=== PATIENT | female | born 1970 | race African-American/Black ===

== ENCOUNTER 2016-04-25 07:14 | Emergency (ER) | payer MEDICAID, OTHER ==
[~2016-04-25] VITALS: Ht 157.5 cm; Wt 54.9 kg
[~2016-04-25 07:14] MED LIST: ALBUTEROL SULF8.5 GM INH; IBUPROFEN600 MG ORAL; LEVAQUIN500 MG ORAL; NKM; PROMETHAZINE-C118 M1 ORAL
[2016-04-25] MEDS ORDERED: ACETAMINOPHEN-1 EAC1 ORAL (08:12)
[2016-04-25] MEDS ORDERED: Tylenol #3 tab (300mg/30mg) ORAL ONE (08:15)
[2016-04-25 08:52] VITALS: BP 102/70
--- NOTE | 2016-04-25 09:03 | Emergency Room Report ---
History of Present Illness General Chief Complaint: Chest Pain Source: Patient Present Illness HPI 46 YO F presents with ~10 days cough, chest tightness, left ear pain, sore throat. Saw PMD 8 days ago, was tx for bronchitis with prednisone, claritin, cough syrup and albuterol with improvement. Still c/o chest tightness, worse with cough. Denies smoking, COPD, asthma history. Denies sick contacts. Allergies: Coded Allergies: AZITHROMYCIN (Unverified Allergy, Unknown, 12/16/13) SUMATRIPTAN (Unverified Allergy, Unknown, 12/16/13) Patient History Past Medical History: none Past Surgical History: none Pertinent Family History: none Social History: Denies: alcohol use, drug use, smoking Last Menstrual Period: 04/18/16 Now: No Immunizations: UTD Reviewed Nursing Documentation: PMH: Agreed, PSxH: Agreed Nursing Documentation-PMH Hx Cardiac Problems: No - MIGRANES Review of Systems All Other Systems: negative except mentioned in HPI Physical Exam Vital Signs Date Time Temp Pulse Resp B/P Pulse Ox O2 Delivery O2 Flow Rate FiO2 04/25/16 07:18 98.1 97 18 102/70 100 Room Air Sp02 EP Interpretation: reviewed, normal General Appearance: normal inspection, well appearing, no apparent distress, alert Head: normocephalic, atraumatic Eyes: bilateral eye EOMI, bilateral eye PERRL ENT: normal ENT inspection, hearing grossly normal, normal pharynx, no angioedema, normal voice, TMs + canals normal, uvula midline Neck: normal inspection, full range of motion, supple, no bony tend Respiratory: normal inspection, lungs clear, normal breath sounds, no respiratory distress, no retraction, no wheezing Cardiovascular #1: regular rate, rhythm, no edema Gastrointestinal: normal inspection, normal bowel sounds, non tender, soft, no guarding, no hernia Genitourinary: no CVA tenderness Musculoskeletal: normal inspection, back normal, normal range of motion, Rossana' s Sign negative Neurologic: normal inspection, alert, oriented x3, responsive, patent engineer III-XII nml as tested, speech normal Psychiatric: normal inspection, judgement/insight normal, mood/affect normal Skin: normal inspection, normal color, no rash Medical Decision Making Diagnostic Impression: Primary Impression: Cough ER Course 46 YO F with cough for ~10 days. Afebrile. VSS. On tx for bronchitis Requesting CXR to r/o PNA on ED review, no acute PNA No source of bacterial infection in oropharynx, ears, throat Improved symptoms here with T#3, DCed with same F/up PMD Chest X-Ray Diagnostic Results EP Interpretation: Yes Findings: no consolidation, no effusion, no pneumothorax, no acute cardiopulmonary disease Number of Views: 1 Last Vital Signs Date Time Temp Pulse Resp B/P Pulse Ox O2 Delivery O2 Flow Rate FiO2 04/25/16 08:52 98.1 12 102/70 100 Room Air 04/25/16 08:51 97 Disposition: HOME, SELF-CARE Condition: Improved Scripts Acetaminophen With Codeine (T#3) (TYLENOL #3 TAB*) Y Tab 2 TAB ORAL Q8H Y for For Pain, #30 TAB Prov: JILLIAN MICHAEL M.D. 04/25/16 Referrals: [facility] [place] (PCP) Patient Instructions: Acute Bronchitis, [id number] Additional Instructions: - Try tylenol with codeine as needed for chest pain, neck pain - Follow up with your primary doctor in 2-3 days JILLIAN MICHAEL M.D. Apr 25, 2016 09:03
[2016-04-25 09:07] VITALS: BP 108/80
--- NOTE | 2016-04-28 15:51 | Diagnostic Imaging Report ---
Indication: Chest pain Technique: Single portable AP view of the chest. Findings: Comparison: 08/18/2008 Bilateral breast implants again noted. The bones and extra pulmonary soft tissues, cardiomediastinal silhouette, pulmonary vasculature and parenchyma, and pleural surfaces are otherwise unremarkable. IMPRESSION: Essentially negative portable AP chest, unchanged.
== END 2016-04-25 09:12 | disposition home or self-care (01) ==
LOC: EMR 07:44
DX: R05 Cough (principal); R07.89 Other chest pain; H92.02 Otalgia, left ear; Z88.1 Allergy status to other antibiotic agents
CPT/HCPCS: 71010; 99283

== ENCOUNTER 2017-03-01 17:15 | Emergency (ER) | payer MEDICAID, OTHER ==
[~2017-03-01] VITALS: Ht 157.5 cm; Wt 53.1 kg
[~2017-03-01 17:15] MED LIST changes: +ACETAMINOPHEN-1 EAC1 ORAL
[2017-03-01] MEDS ORDERED: PROAIR HFA8.5 GM INH (17:55)
[2017-03-01] MEDS ORDERED: PROMETHAZINE-C118 M1 ORAL (17:55)
[2017-03-01] MEDS ORDERED: IBUPROFEN600 MG ORAL (17:55)
[2017-03-01] MEDS ORDERED: PREDNISONE20 MG ORAL (17:55)
[2017-03-01 18:00] VITALS: BP 110/81
--- NOTE | 2017-03-01 20:32 | Emergency Room Report ---
History of Present Illness General Chief Complaint: Upper Respiratory Illness Source: Patient Present Illness [facility] The patient is a 46-year-old female presenting for sore throat, cough, subjective fevers, chills for the past week.She denies any known sick contacts or recent travel. She does have a 7/10 dull ache in the chest which occurs with coughing only. Pain does not radiate. She does admit to mild shortness of breath and is worse at night. She denies other symptoms including nausea, vomiting, hemoptysis, neck pain or stiffness, rash Allergies: Coded Allergies: AZITHROMYCIN (Unverified Allergy, Unknown, 12/16/13) SUMATRIPTAN (Unverified Allergy, Unknown, 12/16/13) Patient History Past Medical History: see triage record Pertinent Family History: none Last Menstrual Period: One week ago Now: No Reviewed Nursing Documentation: PMH: Agreed, PSxH: Agreed Review of Systems All Other Systems: negative except mentioned in HPI Physical Exam Vital Signs Date Time Temp Pulse Resp B/P (MAP) Pulse Ox O2 Delivery O2 Flow Rate FiO2 03/01/17 17:18 97.9 86 46 119/77 100 Room Air Sp02 EP Interpretation: reviewed, normal General Appearance: no apparent distress, alert, GCS 15, non-toxic Head: normocephalic, atraumatic Eyes: bilateral eye normal inspection, bilateral eye PERRL ENT: hearing grossly normal, normal pharynx, no angioedema, normal voice Neck: full range of motion, supple/symm/no masses Respiratory: normal inspection, no accessory muscle use, decreased breath sounds, wheezing - bilat Cardiovascular #1: regular rate, rhythm, no edema Gastrointestinal: normal bowel sounds, non tender, soft, non-distended, no guarding, no rebound Musculoskeletal: back normal, gait/station normal, normal range of motion, non- tender Neurologic: alert, oriented x3, responsive, motor strength/tone normal, sensory intact, speech normal Psychiatric: judgement/insight normal, memory normal, mood/affect normal, no suicidal/homicidal ideation Skin: normal color, no rash, warm/dry, well hydrated Lymphatic: no adenopathy Medical Decision Making PA Attestation Dr. Milton is my supervising physician. Patient management was discussed with my supervising physician Diagnostic Impression: Primary Impression: Bronchitis ER Course The patient is a 46-year-old female presenting for sore throat, cough, subjective fevers, chills for the past week Differential diagnosis include but not limited to pharyngitis, sinusitis, AOM, bronchitis, PNA PE: afebrile. No tachypnea. No apparent distress. No TTP over maxillary or frontal sinuses. Lungs: diffuse wheezing. No accessory muscle use. No resp distress Heart: RRR, no abnormal heart sounds Ears: external auditory canal clear. Non erythematous. Bilat TM intact. Cone of light present bilat. No bulging of TM. No serous fluid seen. no nasal D/C Nor cervical lymphad No tonsillar exudate. Uvula midline.Oropharynx non erythematous CXR unremarkable The patient will be discharged home with a prescription for albuterol, prednisone, and cough medication. ER precautions given Chest X-Ray Diagnostic Results Chest X-Ray Diagnostic Results : Chest X-Ray Ordered: Yes # of Views/Limited/Complete: 1 View Indication: Shortness of Breath EP Interpretation: Yes PA Xray: Interpretation reviewed, by supervising MD, and agrees with findings. Interpretation: no consolidation, no effusion, no pneumothorax, no acute cardiopulmonary disease Impression: No acute disease Electronically Signed by: Pasha Carlson PA-C Last Vital Signs Date Time Temp Pulse Resp B/P (MAP) Pulse Ox O2 Delivery O2 Flow Rate FiO2 03/01/17 18:00 98.2 76 25 110/81 100 Room Air Status: improved Disposition: HOME, SELF-CARE Condition: Improved Scripts Prednisone* (PREDNISONE*) 20 Mg Tablet 40 MG ORAL DAILY, #8 TAB Prov: PASHA CARLSON P.A. 03/01/17 Albuterol Sulfate* (PROAIR HFA*) 8.5 Gm Hfa.aer.ad 2 PUFFS INH Q6H, #8.5 GM 0 Refills Prov: TERZIANCATALINOY P.A. 03/01/17 Ibuprofen* (MOTRIN*) 600 Mg Tablet 600 MG ORAL Q8H Y for For Pain, #30 TAB 0 Refills Prov: TERZIANPASHA P.A. 03/01/17 Codeine/Promethazine Hcl* (PROMETHAZINE-CODEINE SYRUP*) 118 Ml Syrup 5 ML ORAL Q6H Y for For Cough, #118 ML 0 Refills Prov: TERZIAN,PASHA Oden 03/01/17 Referrals: [facility] [place] (PCP) Patient Instructions: Acute Bronchitis Additional Instructions: I discussed my findings with the patient. All questions and concerns have been answered. Treatment and medication compliance have been addressed. I advised the patient that they need to follow up with PMD in 3-5 days. Return to ED if pain remains or worsens, cough worsens or remains, you notice blood in your sputum, you notice wheezing, you experience a fever, or if needed for any reason. Patient verbalized understanding of discharge instructions. PASHA CARLSON Mar 01, 2017 20:32
--- NOTE | 2017-03-02 13:51 | Diagnostic Imaging Report ---
Indication: Dyspnea Comparison: 04/25/16 A single view chest radiograph was obtained. Findings: The left hemidiaphragm is slightly hazy. This could be due to underlying infiltrate or atelectasis. Please correlate clinically. Followup suggested. Heart size is normal. Bones are unremarkable. Impression: Mild infiltrate versus atelectasis at the left lung base
== END 2017-03-01 18:00 | disposition home or self-care (01) ==
LOC: EMR 17:50
DX: J40 Bronchitis, not specified as acute or chronic (principal); Z88.8 Allergy status to other drugs, medicaments and biological substances; Z88.1 Allergy status to other antibiotic agents
CPT/HCPCS: 71010; 99284

== ENCOUNTER 2019-04-12 08:47 | Emergency (ER) | payer MEDICAID, OTHER ==
[~2019-04-12] VITALS: Ht 157.5 cm; Wt 52.6 kg
[~2019-04-12 08:47] MED LIST changes: +PREDNISONE20 MG ORAL; +PROAIR HFA8.5 GM INH
--- NOTE | 2019-04-12 09:02 | NUR ---
ED Nurse Note: patient walked into ED from home c/o left ankle pain 7/10 and some minor swelling which she noticed when she woke up this morning. patient reports she twisted her left ankle today around 0100 wearing high heel boot. patient is alert awake x 4 ambulatory with minor limping, states that she has pain when she bears weight.
[2019-04-12] MEDS ORDERED: Acetaminophen 500mg (ES) tab ORAL ONE (09:30)
[2019-04-12] MEDS ORDERED: TYLENOL325 MG ORAL (10:17)
--- NOTE | 2019-04-12 10:17 | Emergency Room Report ---
History of Present Illness General Chief Complaint: Lower Extremity Injury Source: Patient Present Illness HPI 49-year-old female no past medical history no surgical history presents with left ankle pain, on the lateral side worsened with movement alleviated with rest , patient tripped, and stumbled at 1 AM yesterday, severity is moderate, intermittent she endorses a left achy pain. Allergies: Coded Allergies: AZITHROMYCIN (Unverified Allergy, Unknown, 12/16/13) SUMATRIPTAN (Unverified Allergy, Unknown, 12/16/13) Patient History Past Medical History: see triage record Last Menstrual Period: Apr 02, 2019 Now: No Reviewed Nursing Documentation: PMH: Agreed; PSxH: Agreed Nursing Documentation-PMH Past Medical History: No History, Except For Review of Systems All Other Systems: negative except mentioned in HPI Physical Exam Vital Signs Date Time Temp Pulse Resp B/P (MAP) Pulse Ox O2 Delivery O2 Flow Rate FiO2 04/12/19 08:57 98.1 72 18 107/72 (84) 99 Room Air General Appearance: well appearing, no apparent distress Head: normocephalic, atraumatic ENT: hearing grossly normal, normal voice Neck: full range of motion, supple Respiratory: no respiratory distress, speaking full sentences Musculoskeletal: other - Left ankle tenderness to palpation left lateral malleolus, 2+ PT DP, fires EHL, 5-5 plantar dorsiflexion of the foot, minimal swelling noted Neurologic: alert, normal gait Psychiatric: mood/affect normal Skin: no rash Procedures Splinting Splinting : Consent: Verbal Location: Left ankle Pre-Made Type: aircast Pre-Proc Neuro Vasc Exam: normal Post-Proc Neuro Vasc Exam: normal Patient Tolerated: Well Complications: None Medical Decision Making Diagnostic Impression: Primary Impression: Ankle sprain Qualified Codes: S93.402A - Sprain of unspecified ligament of left ankle, initial encounter ER Course 49-year-old female presents with left ankle pain differential diagnosis includes fracture, dislocation, sprain X-ray negative, patient given a splint and crutches disposition home with return precautions follow-up with Ortho Other X-Ray Diagnostic Results Other X-Ray Diagnostic Results : X-Ray ordered: Left ankle # of Views/Limited Vs Complete: 3 View Indication: Pain EP Interpretation: Yes Interpretation: no dislocation, no soft tissue swelling, no fractures, nonspecific bowel gas Impression: No acute disease Electronically Signed by: Dane Black MD Last Vital Signs Date Time Temp Pulse Resp B/P (MAP) Pulse Ox O2 Delivery O2 Flow Rate FiO2 04/12/19 08:57 98.1 72 18 107/72 (84) 99 Room Air Disposition: HOME, SELF-CARE Condition: Stable Scripts Acetaminophen (Tylenol) 325 Mg Tablet 650 MG ORAL Q6H PRN for Prn Pain/Headache/Temp > 101, #30 TAB 0 Refills Prov: Dane Black MD 04/12/19 Referrals: NON PHYSICIAN (PCP) [facility] Patient Instructions: Ankle Sprain Additional Instructions: The patient was provided with discharge instructions, notified to follow-up with a primary care doctor and or specialist in the next 24-48 hours, and to return to the ED if they have worsening of their symptoms. Please note that this report is being documented using DRAGON technology. This can lead to erroneous entry secondary to incorrect interpretation by the dictating instrument. Dane Black MD Apr 12, 2019 10:17
[2019-04-12 10:22] VITALS: BP 107/72
--- NOTE | 2019-04-12 10:22 | NUR ---
ER DISCHARGE NOTE: Patient is cleared to be discharged per ERMD DR MADSEN, pt is aox4, on room air, with stable vital signs. pt was given dc and prescription instructions, pt was able to verbalize understanding, pt id band removed without complications. pt is able to ambulate with steady gait. pt took all belongings.
--- NOTE | 2019-04-12 10:25 | Diagnostic Imaging Report ---
EXAM: XR Left Ankle Complete, 3 or More Views CLINICAL HISTORY: PAIN TECHNIQUE: Frontal, lateral and oblique views of the left ankle. COMPARISON: No relevant prior studies available. FINDINGS: Bones/joints: Unremarkable. No visible displaced ankle fracture or dislocation. Ankle mortise and talar dome appear unremarkable. Visualized joint spaces appear unremarkable. Soft tissues: Unremarkable. No radiodense foreign bodies. No soft tissue gas lucencies. IMPRESSION: Unremarkable left ankle x-rays.
== END 2019-04-12 10:20 | disposition home or self-care (01) ==
LOC: EMR 08:55
DX: S93.402A Sprain of unspecified ligament of left ankle, initial encounter (principal); W01.0XXA Fall on same level from slipping, tripping and stumbling without subsequent striking against object, initial encounter; Y92.9 Unspecified place or not applicable; Z88.8 Allergy status to other drugs, medicaments and biological substances
CPT/HCPCS: 73610; Z7502; 99283